=== PATIENT | male | born 1950 | race Caucasian/White ===

== ENCOUNTER 2017-09-27 06:32 | Day surgery (SDC) | payer MEDICARE, OTHER ==
[2017-09-27] MEDS ORDERED: Sodium Chloride 0.9% 10 ML Syringe FLUSH PRN (06:45)
[2017-09-27] MEDS ORDERED: Lactated Ringers 1,000 ML IV SCH (06:45)
[2017-09-27] MEDS ORDERED: Propofol 200 MG/20 ML SDV IV ONE (08:00)
--- NOTE | 2017-09-27 08:35 | PCM.HP ---
H&P History of Present Illness - General Date of Service: 09/27/17 (Seen prior to procedure) Admit Problem/Dx: Admission Diagnosis/Problem Admission Diagnosis/Problem Colonoscopy Source of Information: Patient, Old Records History Limitations: Reports: No Limitations - History of Present Illness Initial Comments - Free Text/Narative: Here for Screening colonoscopy for FH Colon ca in mother - Related Data Allergies/Adverse Reactions: Allergies Allergy/AdvReac Type Severity Reaction Status Date / Time No Known Allergies Allergy Verified 09/24/17 08:22 Home Medications: Home Meds Aspirin [Adult Low Dose Aspirin EC] 81 mg PO DAILY 09/24/17 [History] Carboxymethylcellulose Sodium [Refresh Tears] 1 drop EYEBOTH DAILY 09/24/17 [ History] Chlorthalidone [Chlorthalidone] 12.5 mg PO DAILY 09/24/17 [History] Fenofibrate,Micronized [Fenofibrate] 134 mg PO DAILY 09/24/17 [History] Indomethacin 25 mg PO DAILY PRN 09/24/17 [History] Ketotifen [Ketotifen 0.025% Ophth Soln] 1 drop EYEBOTH ASDIRECTED PRN 09/24/17 [ History] Latanoprost [Latanoprost] 1 drop EYEBOTH BEDTIME 09/24/17 [History] Lisinopril [Lisinopril] 1 tab PO DAILY 09/24/17 [History] Lutein 20 mg PO DAILY 09/24/17 [History] Omeprazole [Omeprazole] 1 cap PO ACBREAKFAST 09/24/17 [History] Timolol Maleate 1 drop EYEBOTH DAILY 09/24/17 [History] Past Medical History HEENT History: Reports: Glaucoma, Impaired Vision Cardiovascular History: Reports: High Cholesterol, Hypertension Respiratory History: Reports: Sleep Apnea Other Respiratory History: RECENT URI Gastrointestinal History: Reports: Diverticulosis, GERD Musculoskeletal History: Reports: Gout Oncologic (Cancer) History: Reports: Basal Cell Carcinoma Other Dermatologic History: RECENT PROCEDURE TO REMOVE BASAL CELL CA ON RIGHT CHEEK. - Infectious Disease History Infectious Disease History: Reports: None - Past Surgical History GI Surgical History: Reports: Colonoscopy Social & Family History - Family History GI: Reports: Other (See Below) Other GI Family History: MOTHER HAD COLON CA - Tobacco Use Smoking Status *Q: Never Smoker Years of Tobacco use: 15 Packs/Tins Daily: 1 - Caffeine Use Caffeine Use: Reports: Coffee - Recreational Drug Use Recreational Drug Use: No H&P Review of Systems - Review of Systems: Review Of Systems: See Below General: Reports: No Symptoms Pulmonary: Reports: No Symptoms Cardiovascular: Reports: No Symptoms Gastrointestinal: Reports: No Symptoms Exam - Exam Exam: See Below - Vital Signs Vital Signs: Last Vital Signs Temp 98.5 F 09/27/17 07:28 Pulse 68 09/27/17 07:28 Resp 18 09/27/17 07:28 BP Pulse Ox 96 09/27/17 07:28 Weight: 92.986 kg - Exam General: Alert, Oriented Lungs: Clear to Auscultation, Normal Respiratory Effort Cardiovascular: Regular Rate, Regular Rhythm GI/Abdominal Exam: Soft, Non-Tender *Q Meaningful Use (ADM) - VTE *Q VTE Criteria *Q: - Stroke *Q Stroke Criteria *Q: - AMI *Q AMI Criteria *Q: Problem List Initiated/Reviewed/Updated: Yes Orders Last 24hrs: Active Orders 24 hr Category Date Time Status Patient Status [ADT] Routine ADT 09/27/17 06:45 Ordered Patient to Empty Bladder [RC] ASDIRECTED Care 09/27/17 06:45 Active Verify Patient Consent Obtain [RC] ASDIRECTED Care 09/27/17 06:45 Active Nothing Per Oral Diet [DIET] Diet 09/27/17 Breakfast Ordered Lactated Ringers [Ringers, Lactated] 1,000 ml Med 09/27/17 06:45 Active IV ASDIRECTED Sodium Chloride 0.9% [Saline Flush] Med 09/27/17 06:45 Active 10 ml FLUSH ASDIRECTED PRN Peripheral IV Insertion Adult [OM.PC] Routine Oth 09/27/17 06:45 Ordered Medication Orders Lactated Ringer's (Ringers, Lactated) 1,000 mls @ 125 mls/hr IV ASDIRECTED DAVE Last Admin: 09/27/17 07:40 Dose: 125 mls/hr Sodium Chloride (Saline Flush) 10 ml FLUSH ASDIRECTED PRN PRN Reason: Keep Vein Open Assessment/Plan Comment:: FH Colon Cancer OK to proceed with colonoscopy
--- NOTE | 2017-09-27 08:36 | PCM.OPNOTE ---
- General Post-Op/Procedure Note Date of Surgery/Procedure: 09/27/17 Operative Procedure(s): Colonoscopy Findings: Sig polyp Diverticulosis Pre Op Diagnosis: FH Colon Ca Post-Op Diagnosis: Same Anesthesia Technique: MAC Primary Surgeon: Albert Guardado Anesthesia Provider: Mikie Harvey Pathology: Polyp EBL in mLs: 0 Complications: None Condition: Good
--- NOTE | 2017-09-27 12:38 | OR ---
DATE OF OPERATION: 09/27/2017 SURGEON: Albert Guardado MD PREOPERATIVE DIAGNOSIS: Family history of colon cancer in mother. POSTOPERATIVE DIAGNOSES: 1. Sigmoid colon polyp. 2. Diverticulosis. PROCEDURE PERFORMED: Colonoscopy with polypectomy. ANESTHESIA: IV sedation. DESCRIPTION OF PROCEDURE: The patient was brought to the procedure room, where he was placed on his left side and IV sedation administered. Digital rectal exam was performed, which was normal. The colonoscope was inserted and advanced to the level of the cecum without difficulty. Cecal position was confirmed by identifying the appendiceal lumen and ileocecal valve. Prep was good with some small areas of liquid stool remaining that were mostly suctioned and irrigated. Upon withdrawing the scope he has diverticula throughout the colon, mostly concentrated in the sigmoid colon. There was also an 8 mm sessile polyp located in the sigmoid colon, 40 cm from the anal verge. This was removed with the cautery snare and retrieved in the polyp trap. The rectum was normal and retroflexion was normal. Air was removed and the scope withdrawn. The patient tolerated the procedure well and returned to recovery in stable condition. The patient will be contacted with the pathology report when it returns. If the polyp is adenomatous, he should undergo a repeat colonoscopy again in 3 years. If the polyp is hyperplastic, he can wait 5 years until his next colon screening. /[id number] SARAH/LUCY
== END 2017-09-27 10:06 | disposition home or self-care (01) ==
LOC: FB.SDS 06:32
PROVIDERS: ATTEND Surgery
DX: Z12.11 Encounter for screening for malignant neoplasm of colon (principal); D12.5 Benign neoplasm of sigmoid colon; E78.00 Pure hypercholesterolemia, unspecified; I10 Essential (primary) hypertension; K21.9 Gastro-esophageal reflux disease without esophagitis; H40.9 Unspecified glaucoma; M10.9 Gout, unspecified; G47.33 Obstructive sleep apnea (adult) (pediatric); H40.1132 Primary open-angle glaucoma, bilateral, moderate stage; K57.30 Diverticulosis of large intestine without perforation or abscess without bleeding; Z80.0 Family history of malignant neoplasm of digestive organs; Z79.82 Long term (current) use of aspirin; Z79.899 Other long term (current) drug therapy; Z85.828 Personal history of other malignant neoplasm of skin
CPT/HCPCS: 00810; 45385; 88305; J2704; J7120

== ENCOUNTER 2020-10-01 08:00 | Day surgery (SDC) | payer MEDICARE, OTHER ==
[~2020-10-01 08:00] MED LIST: Lactated Ringers 1,000 ML IV SCH; Sodium Chloride 0.9% 10 ML Syringe FLUSH PRN
[2020-10-01] MEDS ORDERED: Propofol 200 MG/20 ML SDV IV ONE (08:01)
--- NOTE | 2020-10-01 09:27 | PCM.HP.2 ---
H&P History of Present Illness - General Date of Service: 10/01/20 Admit Problem/Dx: Admission Diagnosis/Problem Admission Diagnosis/Problem Colonoscopy Source of Information: Patient, Old Records History Limitations: Reports: No Limitations - History of Present Illness Initial Comments - Free Text/Narative: Here for colonoscopy for Hx polyps and FH Colon cancer - Related Data Allergies/Adverse Reactions: Allergies Allergy/AdvReac Type Severity Reaction Status Date / Time No Known Allergies Allergy Verified 10/01/20 08:30 Home Medications: Home Meds Carboxymethylcellulose Sodium [Refresh Tears] 1 drop EYEBOTH DAILY PRN 09/24/17 [History] Chlorthalidone 12.5 mg PO DAILY 09/24/17 [History] Indomethacin 25 mg PO DAILY PRN 09/24/17 [History] Ketotifen [Ketotifen 0.025% Ophth Soln] 1 drop EYEBOTH ASDIRECTED PRN 09/24/17 [History] Latanoprost 1 drop EYEBOTH BEDTIME 09/24/17 [History] Lisinopril 1 tab PO DAILY 09/24/17 [History] Lutein 20 mg PO DAILY 09/24/17 [History] Omeprazole 20 mg PO Q2D 09/24/17 [History] Timolol Maleate 1 drop EYEBOTH DAILY 09/24/17 [History] Aspirin [Halfprin] 81 mg PO DAILY 09/30/20 [History] Ascorbate Calcium [Vitamin C] 500 mg PO DAILY 10/01/20 [History] Cholecalciferol (Vitamin D3) [Vitamin D] unit PO DAILY 10/01/20 [History] Multivitamin 1 tab PO DAILY 10/01/20 [History] Past Medical History HEENT History: Reports: Glaucoma, Impaired Vision Cardiovascular History: Reports: High Cholesterol, Hypertension Respiratory History: Reports: Sleep Apnea Other Respiratory History: RECENT URI Gastrointestinal History: Reports: Colon Polyp, Diverticulosis, GERD Genitourinary History: Reports: Other (See Below) Other Genitourinary History: ERECTILE DYSFUNCTION Musculoskeletal History: Reports: Gout Endocrine/Metabolic History: Reports: Obesity/BMI 30+ Oncologic (Cancer) History: Reports: Basal Cell Carcinoma Other Dermatologic History: RECENT PROCEDURE TO REMOVE BASAL CELL CA ON RIGHT CHEEK. - Infectious Disease History Infectious Disease History: Reports: None - Past Surgical History HEENT Surgical History: Reports: None Cardiovascular Surgical History: Reports: None Respiratory Surgical History: Reports: None GI Surgical History: Reports: Colonoscopy Male Surgical History: Reports: None Endocrine Surgical History: Reports: None Musculoskeletal Surgical History: Reports: None Social & Family History - Family History GI: Reports: Other (See Below) Other GI Family History: MOTHER HAD COLON CA - Tobacco Use Tobacco Use Status *Q: Former Tobacco User - Caffeine Use Caffeine Use: Reports: Coffee - Recreational Drug Use Recreational Drug Use: No H&P Review of Systems - Review of Systems: Review Of Systems: Comprehensive ROS is negative, except as noted in HPI. Exam - Exam Exam: See Below - Vital Signs Vital Signs: Last Vital Signs Temp 97.6 F 10/01/20 08:23 Pulse 71 10/01/20 08:23 Resp 16 10/01/20 08:23 BP 151/95 H 10/01/20 08:23 Pulse Ox 94 L 10/01/20 08:23 Weight: 92.1 kg - Exam General: Alert, Oriented Lungs: Clear to Auscultation, Normal Respiratory Effort Cardiovascular: Regular Rate, Regular Rhythm GI/Abdominal Exam: Soft, Non-Tender Sepsis Event Note - Focused Exam Vital Signs: Vital Signs Temp Pulse Resp BP Pulse Ox 10/01/20 08:23 97.6 F 71 16 151/95 H 94 L Problem List Initiated/Reviewed/Updated: Yes Orders Last 24hrs: Active Orders 24 hr Category Date Time Status Patient Status [ADT] Routine ADT 10/01/20 08:00 Active Patient to Empty Bladder [RC] ASDIRECTED Care 10/01/20 08:00 Active Verify Patient Consent Obtain [RC] ASDIRECTED Care 10/01/20 08:00 Active Nothing Per Oral Diet [DIET] Diet 09/30/20 Dinner Ordered Lactated Ringers [Ringers, Lactated] 1,000 ml Med 10/01/20 08:00 Active IV ASDIRECTED Sodium Chloride 0.9% [Saline Flush] Med 10/01/20 08:00 Active 10 ml FLUSH ASDIRECTED PRN Peripheral IV Insertion Adult [OM.PC] Routine Oth 10/01/20 08:00 Ordered Resuscitation Status Routine Resus Stat 09/30/20 13:28 Ordered Medication Orders Lactated Ringer's (Ringers, Lactated) 1,000 mls @ 125 mls/hr IV ASDIRECTED DAVE Last Admin: 12/15/20 08:34 Dose: 125 mls/hr Documented by: JONEAZARIA Sodium Chloride (Saline Flush) 10 ml FLUSH ASDIRECTED PRN PRN Reason: Keep Vein Open Assessment/Plan Comment:: Hx Colon Polyp; ok to proceed Risks and complications reviewed, consent obtained
--- NOTE | 2020-10-01 09:54 | PCM.OPNOTE ---
- General Post-Op/Procedure Note Date of Surgery/Procedure: 10/01/20 Operative Procedure(s): Colonoscopy with polypectomy Findings: Sig tics; small sig polyp Pre Op Diagnosis: Hx Polyps and FH Ca Post-Op Diagnosis: Same Anesthesia Technique: MAC Primary Surgeon: Albert Guardado Complications: None Condition: Good
--- NOTE | 2020-10-02 18:35 | OR ---
DATE OF OPERATION: 10/01/2020 SURGEON: Albert Guardado MD PREOPERATIVE DIAGNOSES: 1. Family history of colon cancer. 2. History of colon polyps. POSTOPERATIVE DIAGNOSES: 1. Sigmoid colon polyp. 2. Sigmoid diverticulosis. PROCEDURE: Colonoscopy with polypectomy. ANESTHESIA: IV sedation. PROCEDURE IN DETAIL: The patient was brought to the procedure room, where he was placed on his left side and IV sedation administered. Digital rectal exam was performed, which was normal. The colonoscope was inserted and advanced to the level of the cecum with minimal difficulty getting through a tortuous sigmoid colon. Cecum was confirmed by identifying the appendiceal lumen and ileocecal valve. Prep was good with some thick liquid covering through some areas that was mostly irrigated and suctioned to provide adequate visualization. Upon withdrawing the scope, the ascending, transverse, and descending colon were normal in appearance. The sigmoid colon was tortuous with multiple diverticula present. There was a 6 mm sessile polyp located at 55 cm from the anal verge that was removed with a hot biopsy forceps. The rectum was normal and retroflexion was normal. Air was removed and the scope withdrawn. The patient tolerated the procedure well and returned to recovery in stable condition. RECOMMENDATIONS: Patient will be contacted with the pathology report when it returns. I recommend that he undergo surveillance colonoscopy again in 5 years. /[id number] SARAH/LUCY
== END 2020-10-01 10:36 | disposition home or self-care (01) ==
LOC: FB.SDS 08:00
PROVIDERS: ATTEND Surgery
DX: Z12.11 Encounter for screening for malignant neoplasm of colon (principal); D12.5 Benign neoplasm of sigmoid colon; K57.30 Diverticulosis of large intestine without perforation or abscess without bleeding; E78.00 Pure hypercholesterolemia, unspecified; I10 Essential (primary) hypertension; E66.9 Obesity, unspecified; Z80.0 Family history of malignant neoplasm of digestive organs; Z79.899 Other long term (current) drug therapy; Z79.82 Long term (current) use of aspirin; G47.30 Sleep apnea, unspecified; Z87.891 Personal history of nicotine dependence
CPT/HCPCS: 00812; 45384; 88305; J2704; J7120